=== PATIENT | female | born 1950 | race Caucasian/White ===

== ENCOUNTER → 2017-04-16 | Outpatient (CLI) | payer OTHER ==
[~2017-04-16] MED LIST: ACTOS PO; AMLODIPINE BESYL5 MG PO; ASPIRIN81 M1 PO; ASPIRIN81 M2 PO; BENICAR PO; FISH OIL 1,0001 CA2 PO; FUROSEMIDE40 MG PO; LIPITOR PO; LISINOPRIL PO; MULTI VITAMIN1 EACH PO; NOVOLIN 70/30 V10 M1 SUBQ; NOVOLIN 70/30 V10 ML INJ; PRAVASTATIN SOD40 MG PO; SYNTHROID PO; VICODIN 5/500 T1 TAB PO; VITAMIN C DAILY
--- NOTE | ~2017-04-16 | MY29 ---
[facility] A Service of [facility] [place] RADIOLOGY TEXT RESULTS PATIENT: JEAN VICTOR LOCATION: [facility] : 50 UNIT #: [id number] AGE: [address]: Nile Decker MD SEX: F ORDER DR: [id number] [facility] [address] [place], [place] [address] [id number] O MR#: [id number] Acc #: [id number] NAME: JEAN VICTOR : 1950 SEX: F STUDY DATE/TIME: 04/16/2017 15:28 UNIT: [facility] ROOM: STUDY DESCRIPTION: MY SHANT SCREENING W/ CAD BILAT Attending Physician: Nile Decker M.D. Referring Physician: Nile Decker M.D. Ordering Physician: Nile Decker M.D. Primary Care Physician: Nile Decker M.D. MEDICAL IMAGING REPORT This report is preliminary unless electronic signature is present EXAM Bilateral digital screening mammogram with CAD. COMPARISON April 11, 2016, June 16, 2014, January 28, 2013, November 20, 2011, February 22, 2010, February 16, 2009. INDICATION Breast cancer screening. 66-year-old asymptomatic female. No personal or family history of breast cancer. FINDINGS There are scattered fibroglandular densities. Overall breast density has increased symmetrically bilaterally, likely due to weight loss as compression thickness has also diminished. There are benign secretory calcifications of both breasts. There are no suspicious findings in either breast. IMPRESSION No mammographic evidence of malignancy. Continued annual screening mammography and clinical breast exam are recommended. Patients over the age of 40 are entered into a reminder system with target due date for the next mammogram. A result letter will also be sent to the patient. BIRADS: 2 Benign finding. Dictated by... Jase Castle M.D. [facility] A Service of [facility] [place] RADIOLOGY TEXT RESULTS PATIENT: JEAN VICTOR LOCATION: [facility] : 50 UNIT #: [id number] AGE: [address]: Nile Decker MD SEX: F ORDER DR: THIS IS AN ELECTRONICALLY VERIFIED REPORT Jase Castle M.D. at 04/19/2017 12:45 PM FIDELINA/ayaka TD: 04/17/2017 02:13 JOB #: [id number] MEDICAL IMAGING REPORT Page 1 of 1 COPY
== END | disposition home or self-care (01) ==
LOC: CWCC 14:30
DX: Z12.31 Encounter for screening mammogram for malignant neoplasm of breast (principal)
CPT/HCPCS: G0202